=== PATIENT | female | born 1950 | race Caucasian/White ===

== ENCOUNTER 2017-05-14 20:11 | Emergency (ER) | payer OTHER, MEDICARE ==
[~2017-05-14] VITALS: Ht 167.6 cm; Wt 123.1 kg
[~2017-05-14 20:11] MED LIST: ALPRAZOLAM0.25 M2 PO; CITALOPRAM HBR20 MG PO; DAILY MULTIVIT1 EAC3 PO; DAILY MULTIVIT1 EAC4 PO; ENALAPRIL MALEA20 MG PO; FIBER TABS625 MG PO; LO-DOSE ASPIRIN81 M1 PO; NAPROXEN500 MG PO; SIMVASTATIN20 MG PO
[2017-05-14 21:02] LABS: HEMATOCRIT 43.2 % (36.0-46.0); MCH 30.2 PG (29.0-34.0); MCHC 33.1 G/DL (30.0-36.0); MCV 91.3 FL (83-99); MEAN PLAT.VOLUME 10.3 uM^3 (9.5-12.4); PLATELET COUNT 212 K/uL (156-360); RBC DIS.WIDTH-CV 12.8 % (11.8-14.6); RED BLOOD COUNT 4.73 M/uL (3.80-5.20)
[2017-05-14 21:16] LABS: CHLORIDE 104 mEq/L (99-109); POTASSIUM 4.8 mEq/L (3.7-5.4); SODIUM 143 mEq/L (136-147)
[2017-05-14 21:17] LABS: GLUCOSE 119 mg/dL (70-99)
[2017-05-14 21:19] LABS: ANION GAP 14 MEQ/L (2-14)
[2017-05-14 21:21] LABS: GFR ESTIMATE (CALCULATED) 30 mL/min/
[2017-05-14 21:22] LABS: UREA NITROGEN (BUN) 23 mg/dL (9-23)
[2017-05-14 21:24] LABS: TROP-I INTERPRETATION NEGATIVE; TROPONIN-I < 0.01 ng/mL (0.0-0.30)
[2017-05-14 23:45] VITALS: BP 159/74
== END 2017-05-14 22:36 | disposition home or self-care (01) ==
LOC: EME 20:11
DX: R07.89 Other chest pain (principal); I10 Essential (primary) hypertension; Z88.1 Allergy status to other antibiotic agents
CPT/HCPCS: 71020; 71275; 80048; 84484; 85027; 85379; 93005; 99281; 99284; J7030